=== PATIENT | female | born 2000 | race Caucasian/White ===

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

== ENCOUNTER 2022-06-12 20:26 | Emergency (ER) | payer MEDICAID ==
[2022-06-12 20:35] VITALS: BP 131/74
[2022-06-12] MEDS ORDERED: CYCLOBENZAPRINE 10 MG TABLET PO STA (20:54)
--- NOTE | 2022-06-12 20:58 | ED Physician Documentation ---
History of Present Illness - Stated complaint Stated Complaint: R LAT SIDE PX/NUMB - Chief complaint Chief Complaint: General - History obtained from History obtained from: Patient - Additonal information Additional information: 22yF, previously healthy, p/w numbness, tingling and pain down the R side of her body X 1 week. Patient woke with pain and has had constant symptoms since that time. denies neck or back pain. denies weakness. Review of Systems Musculoskeletal: reports: Extremity pain. denies: Joint pain Neurologic: reports: Numbness. 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 : None HEENT: None Psych: None Musculoskeletal: None Derm: None - Past Surgical History Past Surgical History: Yes Ortho: Other - Present Medications Home Medications: Ambulatory Orders Medication Instructions Recorded Confirmed No Known Home Medications 06/12/22 06/12/22 - Allergies Allergies/Adverse Reactions: Allergies Allergy/AdvReac Type Severity Reaction Status Date / Time No Known Drug Allergies Allergy Verified 06/12/22 20:35 - Social History Does the pt smoke?: No Smoking Status: Never smoker Does the pt drink ETOH?: No Does the pt have substance abuse?: No - Immunizations Immunizations are current?: Yes - POLST Patient has POLST: No PD ED PE NORMAL - Vitals Vital signs reviewed: Yes - General General: Alert and oriented X 3, No acute distress, Well developed/nourished - HEENT HEENT: Atraumatic, PERRL, EOMI - Neck Neck: No bony TTP, Other (R trapezius muscle ttp) - Extremities Extremities: No deformity, No tenderness to palpate, Normal ROM s pain, No edema, Other (2+ radial and DP pulses on the right side. normal sensation objectively. ) - Neuro Neuro: No motor deficit, No sensory deficit Results - Vitals Vitals: Vital Signs - 24 hr 06/12/22 20:32 Temperature 36.9 C Heart Rate 99 Respiratory 16 Rate Blood Pressure 131/74 H O2 Saturation 99 Oxygen O2 Source Room air PD Medical Decision Making - ED course ED course: 22yF p/w R sided paresthesias X 1 week. patient is well appearing with benign exam with exception of R trapezius muscle tension for which we provided a muscle relaxer. Referral to pcp enclosed. return precautions provided. Departure - Departure Disposition: 01 Home, Self Care Clinical Impression: Numbness and tingling Condition: Stable Instructions: ED Paraesthesias Follow-Up: Garfield Galvan MD [Provider Admit Priv/Credential] - Ivonne Torres PA-C [Provider Admit Priv/Credential] - Comments: You were seen in the emergency department for numbness, tingling, and pain on your right side. Your exam uncovered no emergent cause for your symptoms, however you should follow-up with a primary care provider (referral enclosed). Return to the emergency department for new or worsening symptoms or if you have other concerns. Forms: Activity restrictions
== END 2022-06-12 21:08 | disposition home or self-care (01) ==
LOC: ED 20:26
DX: R20.0 Anesthesia of skin (principal); R20.2 Paresthesia of skin
CPT/HCPCS: 99282; A9270

== ENCOUNTER 2022-11-08 21:59 | Emergency (ER) | payer OTHER, MEDICAID ==
[2022-11-08 22:16] VITALS: BP 125/82; O2SAT 99
--- NOTE | 2022-11-08 22:34 | ED Physician Documentation ---
PD HPI UPPER EXT INJURY - Stated complaint Stated Complaint: FALL - Chief complaint Chief Complaint: Ext Problem - History obtained from History obtained from: Patient - Additonal information Additional information: HPI from patient. Patient complains of sudden onset of right wrist pain, onset at approximately 8:30 PM tonight when she slipped on a wet floor at work onto outstretched right hand. Denies head injury, denies LOC. She is right-hand dominant. Pain is worse with movement, palpation. Review of Systems Musculoskeletal: reports: Joint pain. 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 : None HEENT: None Psych: None Musculoskeletal: None Derm: None - Past Surgical History Past Surgical History: Yes Ortho: Other - Present Medications Home Medications: Ambulatory Orders Medication Instructions Recorded Confirmed No Known Home Medications 06/12/22 06/12/22 - Allergies Allergies/Adverse Reactions: Allergies Allergy/AdvReac Type Severity Reaction Status Date / Time No Known Drug Allergies Allergy Verified 06/12/22 20:35 - Social History Does the pt smoke?: No Smoking Status: Never smoker Does the pt drink ETOH?: No Does the pt have substance abuse?: No - Immunizations Immunizations are current?: Yes - POLST Patient has POLST: No PD ED PE NORMAL - Vitals Vital signs reviewed: Yes - General General: Alert and oriented X 3, No acute distress, Well developed/nourished - Neuro Neuro: No motor deficit, No sensory deficit PD ED PE EXPANDED - Extremities Extremities: Tenderness (TTP medial/ulnar aspect of right wrist. faint bruising, trace swelling dorsal surface of wrist), Limited ROM (right wrist limited flexion, extension, ulnar and radial devation due to pain), Swelling, Bruising, Vascular intact (brisk capillary refill in fingertips), Other (no "snuff box" tenderness) Results - Vitals Vitals: Vital Signs - 24 hr 11/08/22 22:06 Temperature 37.0 C Heart Rate 97 Respiratory 16 Rate Blood Pressure 125/82 H O2 Saturation 99 Oxygen O2 Source Room air - Rads (name of study) right wrist xrays Relevant Findings:: Prelim report reviewed, EMP independent interpretation of test (I reviewed these images and my interpretation is no evidence of acute injury including fracture, dislocation), See rad report PD Medical Decision Making - ED course Complexity details: reviewed results, re-evaluated patient, considered differential, d/w patient ED course: No evidence of acute injury on right wrist x-rays. Results discussed with patient. Velcro wrist splint is placed. Return precautions reviewed. Departure - Departure Disposition: 01 Home, Self Care Clinical Impression: Right wrist sprain Condition: Good Instructions: ED Splint Care Katharina, ANTIONE Sprain Wrist Comments: There is no evidence of acute injury, such as fracture or dislocation, on the x- rays tonight of the right wrist. I recommend that you use the right wrist splint for the next 3 days. This will help minimize movement of the wrist which, in turn, will speed up the healing of the sprain. If you feel the splint is still helping after 3 days, you can continue to use the splint. If you are not pain-free with full range of motion of the wrist in one week, seek follow-up with your primary care provider for reevaluation of the injury. Forms: Activity restrictions Discharge Date/Time: 11/09/22 00:28
--- NOTE | 2022-11-09 00:02 | XRAY Report ---
PROCEDURE: Wrist 3 View RT INDICATIONS: FOOSH, right wrist pain TECHNIQUE: 3 views of the wrist were acquired. COMPARISON: None. FINDINGS: Bones: No definite fractures or dislocations. No suspicious bony lesions. Soft tissues: No suspicious soft tissue calcifications or masses. IMPRESSION: 1. No definite fracture or dislocation. Evaluation of the scaphoid slightly limited in the absence of a dedicated scaphoid view. Reviewed by: Joe Yu MD on 11/09/2022 12:00 AM PDT Approved by: Joe Yu MD on 11/09/2022 12:00 AM PDT Station ID: [id number]
== END 2022-11-09 00:28 | disposition home or self-care (01) ==
LOC: ED 21:59
DX: S63.501A Unspecified sprain of right wrist, initial encounter (principal); W01.10XA Fall on same level from slipping, tripping and stumbling with subsequent striking against unspecified object, initial encounter; Y93.01 Activity, walking, marching and hiking; Y92.511 Restaurant or cafe as the place of occurrence of the external cause; Y99.0 Civilian activity done for income or pay
CPT/HCPCS: 1040M; 73110; 99283

== ENCOUNTER 2022-11-16 19:08 | Emergency (ER) | payer OTHER, MEDICAID ==
[2022-11-16 19:23] VITALS: BP 129/88; O2SAT 100
--- NOTE | 2022-11-16 19:28 | ED Physician Documentation ---
History of Present Illness - Stated complaint Stated Complaint: RT WRIST PX - Chief complaint Chief Complaint: Trauma Ext - Additonal information Additional information: 22-year-old female returns emergency department for evaluation of persistent right wrist pain. Reports that on 11/08/2022 she slipped on a wet floor at work and sustained a FOOSH injury. She was seen here at this emergency department and had negative x-ray imaging. Was placed in a splint. She continued to wear the splint until yesterday. She returned to work today without the use of the splint and found that anytime she was moving it or doing heavy lifting she was feeling a popping and grinding in the wrist. She has had no fevers. She has not followed up with a PCP or labor and industries provider. 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 HEENT: None Psych: None Musculoskeletal: None Derm: None - Past Surgical History Past Surgical History: Yes Ortho: Other - Present Medications Home Medications: Ambulatory Orders Medication Instructions Recorded Confirmed No Known Home Medications 06/12/22 11/16/22 - Allergies Allergies/Adverse Reactions: Allergies Allergy/AdvReac Type Severity Reaction Status Date / Time No Known Drug Allergies Allergy Verified 11/16/22 19:11 - Social History Does the pt smoke?: No Smoking Status: Never smoker Does the pt drink ETOH?: No Does the pt have substance abuse?: No - Immunizations Immunizations are current?: Yes - POLST Patient has POLST: No PD ED PE EXPANDED - Extremities Extremities: Right wrist (Mild pain elicited on the dorsum of the wrist just distal to the ulnar styloid. No swelling or ecchymosis. Normal range of movement and motion. 2+ radial pulse. Neurovascular intact. no snuff box tenderness) Results - Vitals Vitals: Vital Signs - 24 hr 11/16/22 19:11 Temperature 36.5 C Heart Rate 97 Respiratory 16 Rate Blood Pressure 129/88 H O2 Saturation 100 Oxygen O2 Source Room air - Rads (name of study) right wrist xr Relevant Findings:: Final report received (No visualized acute fracture or dislocation.) PD Medical Decision Making - ED course Complexity details: reviewed results, re-evaluated patient, d/w patient ED course: 22-year-old female presents to the emergency department for evaluation of persistent right hand pain. Initially had a FOOSH injury 11/08/2022. This was a work-related injury. Initial x-ray imaging was negative and patient wore a splint. When she is at work today without the splint she continued to have a persistent grinding and popping in the wrist. She now returns to the ER seeking reevaluation. On exam there is no swelling or ecchymosis. She has full active and passive range of motion. Some mild tenderness was elicited on the dorsum of the wrist just distal to the ulnar styloid. I did repeat the x-ray imaging which remains negative. At this juncture given that its nearly 10 days postinjury without an improvement in symptoms she should be referred to orthopedics. She is advised to resume wearing the splint. She is advised to follow-up with one of the local walk-in clinics in order to obtain that referral. The usual emergent return precautions otherwise were discussed. Departure - Departure Disposition: 01 Home, Self Care Clinical Impression: Right wrist pain, Work related injury Condition: Stable Comments: The x-ray of your wrist today continues to show no evidence of fracture. However because the popping and grinding sensation occurred without use of the splint I think it is important that you return to wearing it again. I would like you to follow-up at one of the local walk-in clinics in order to obtain a referral to orthopedics for longer-term evaluation and management of this work- related injury. You can continue to take the [id number] medication you are already taking. Forms: PCP List Discharge Date/Time: 11/16/22 20:25
--- NOTE | 2022-11-16 20:00 | XRAY Report ---
PROCEDURE: Wrist 3 View RT INDICATIONS: right wrist pain after FOOSH 11/08/22 TECHNIQUE: 3 views of the wrist were acquired. COMPARISON: X-ray wrist 95 FINDINGS: Bones: No fractures or dislocations. No suspicious bony lesions. Soft tissues: No suspicious soft tissue calcifications or masses. IMPRESSION: No visualized acute fracture or dislocation. However, occult injury cannot be excluded. Recommend sania rt interval imaging follow-up in 7-10 days as clinically indicated for additional evaluation. Reviewed by: Kerri Moura MD on 11/16/2022 7:59 PM PDT Approved by: Kerri Moura MD on 11/16/2022 7:59 PM PDT Station ID: [id number]
== END 2022-11-16 20:25 | disposition home or self-care (01) ==
LOC: ED 19:08
DX: S69.91XA Unspecified injury of right wrist, hand and finger(s), initial encounter (principal); W19.XXXA Unspecified fall, initial encounter; Y99.0 Civilian activity done for income or pay
CPT/HCPCS: 99283

== ENCOUNTER 2022-11-18 15:05 | Outpatient (CLI) | payer OTHER, MEDICAID ==
--- NOTE | 2022-11-18 17:24 | XRAY Report ---
PROCEDURE: Wrist 4 View RT INDICATIONS: SPRAIN OF RADIOCARPAL JOINT OF RT WRIST TECHNIQUE: 3 views of the wrist were acquired. COMPARISON: None. FINDINGS: Bones: No fractures or dislocations. No suspicious bony lesions. Soft tissues: No suspicious soft tissue calcifications or masses. IMPRESSION: No acute bony abnormality. Reviewed by: Holland Jerome on 11/18/2022 5:22 PM PDT Approved by: Holland Jerome on 11/18/2022 5:22 PM PDT Station ID: [id number]
== END 2022-11-18 15:06 | disposition home or self-care (01) ==
LOC: DI 15:05
PROVIDERS: ATTEND Emergency Medicine
DX: S63.521A Sprain of radiocarpal joint of right wrist, initial encounter (principal)

== ENCOUNTER 2023-02-09 19:22 | Emergency (ER) | payer MEDICAID ==
[2023-02-09 19:35] VITALS: O2SAT 100
--- NOTE | 2023-02-09 19:40 | ED Physician Documentation ---
PD HPI FOCAL NEURO - Stated complaint Stated Complaint: RT SIDE BODY NUMBNESS - Chief complaint Chief Complaint: Ext Problem - History obtained from History obtained from: Patient - Additional information Additional information: Starting about 5 days ago she developed numbness "[id number]-[id number]-hbfqdxr sensation," on the right side of her neck which subsequently involve the right arm and now involves the right leg. There is no clear weakness, but states it is a little hard to carry things on the right side. There is no associated headache. No double vision. She has a history of migraines, but not currently. No possibility of . 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 : None HEENT: None Psych: None Musculoskeletal: None Derm: None - Past Surgical History Past Surgical History: Yes Ortho: Other - Present Medications Home Medications: Ambulatory Orders Medication Instructions Recorded Confirmed No Known Home Medications 06/12/22 11/16/22 - Allergies Allergies/Adverse Reactions: Allergies Allergy/AdvReac Type Severity Reaction Status Date / Time No Known Drug Allergies Allergy Verified 02/09/23 19:27 - Social History Does the pt smoke?: No Smoking Status: Never smoker Does the pt drink ETOH?: No Does the pt have substance abuse?: No - Immunizations Immunizations are current?: Yes - POLST Patient has POLST: No PD ED PE NORMAL - Vitals Vital signs reviewed: Yes - General General: Alert and oriented X 3, No acute distress - HEENT HEENT: PERRL, EOMI - Neck Neck: Supple, no meningeal sign, No bony TTP - Derm Derm: Normal color, Warm and dry - Neuro Neuro: Alert and oriented X 3, char filter tank tender 2-12 intact, No motor deficit, No sensory deficit (I checked sharp versus dull discrimination in the face, neck, upper and lower extremities and there was no clear deficit on the right side.), Normal speech Eye Opening: Spontaneous Motor: Obeys Commands Verbal: Oriented GCS Score: 15 - Psych Psych: Normal mood NIHSS - Time Time: 19:35 - Level of Consciousness Level of consciousness: (0) Alert, Keenly responsive LOC Questions: (0) Answers both Q's correct LOC Commands: (0) Performs both correctly - Gaze Best Gaze: (0) Normal - Visual Visual: (0) No loss - Facial Palsy Facial Palsy: (0) Normal, symmetrical movement - Motor Arms (both separate) Motor Arm (right): (0) No drift Motor Arm (left): (0) No drift - Motor Legs (both separate) Motor Leg (right): (0) No drift Motor Leg (left): (0) No drift - Limb Ataxia Limb Ataxia: (0) Absent - Sensory Sensory: (0) Normal - Best Language Best Language: (0) No aphasia - Dysarthria Dysarthria: (0) Normal - Extinction and Inattention (formally neg Extinction and inattention: (0) No abnormality - Total Score/Results Total Score/Result: 0 Results - Vitals Vitals: Vital Signs - 24 hr 02/09/23 19:27 Temperature 36.5 C Heart Rate 90 Respiratory 18 Rate Blood Pressure 126/72 O2 Saturation 100 Oxygen O2 Source Room air - Rads (name of study) CT Head Relevant Findings:: Final report received, EMP independent interpretation of test PD Medical Decision Making - ED course ED course: 22-year-old presents with several days worth of right-sided paresthesias not fitting a distribution consistent with a cervical or lumbar radiculopathy. That said fairly close neurologic examination including sharp versus dull discrimination is symmetric and without abnormal findings. CT of the head was negative noting that we do not have MRI availability at this time of night and she may return in the morning if still symptomatic. Departure - Departure Disposition: 01 Home, Self Care Clinical Impression: Paresthesia Condition: Good Record reviewed to determine appropriate education?: Yes Instructions: ED Paraesthesias Comments: CAT scan was normal, but as discussed, MRI would be a more appropriate test given your symptoms. If still having persistent symptoms in the morning either follow-up with your primary care physician or return to the emergency department earlier in the day, maybe around 9 AM for consideration for reevaluation and brain MRI. Return sooner for new or worsening symptoms Forms: PCP List, Activity restrictions
--- NOTE | 2023-02-09 20:34 | CT Report ---
PROCEDURE: HEAD WO INDICATIONS: numb right side TECHNIQUE: Noncontrast 4.5 mm thick angled axial sections acquired from the foramen magnum to the vertex. For r adiation dose reduction, the following was used: automated exposure control, adjustment of mA and/or kV according to patient size. COMPARISON: None. FINDINGS: Image quality: Excellent. CSF spaces: Basal cisterns are patent. No extra-axial fluid collections. Ventricles are normal in size and shape. Brain: No midline shift. No intracranial masses or hemorrhage. Waddell-white matter interface is norm al. Skull and face: Calvarium and visualized facial bones are intact, without suspicious lesions. Sinuses: Visualized sinuses and mastoids are clear. IMPRESSION: No acute intracranial pathology. Reviewed by: Brian Bolivar MD on 02/09/2023 8:33 PM PST Approved by: Brian Bolivar MD on 02/09/2023 8:33 PM PST Station ID: [id number]
[2023-02-09 21:37] VITALS: BP 124/70
== END 2023-02-09 21:27 | disposition home or self-care (01) ==
LOC: ED 19:22
DX: R20.2 Paresthesia of skin (principal)
CPT/HCPCS: 99284